=== PATIENT | female | born 2005 | race Caucasian/White ===

== ENCOUNTER 2024-11-30 19:50 | Emergency (ER) | payer SELFPAY ==
[~2024-11-30] VITALS: Ht 162.6 cm; Wt 50.0 kg
[2024-11-30 20:20] VITALS: BP 109/72; PULSE 115; RESP 20; O2SAT 96
--- NOTE | 2024-11-30 20:55 | Physician Documentation ---
History of Present Illness ~ Chief Complaint: Cold, cough & congestion Stated Complaint: SORE THROAT Time Seen by MD: 20:40 HPI 18-year-old female presents to the ED with a complaint of cold cough congestion for the last week. She states that she had a fever of 103 today took acetaminophen presents to the ED now with subclinical fever and a cough. denies any shortness of breath denies any history of COPD asthma or diabetes Day of Onset: Nov 30, 2024 Medication Reconciliation Allergies: Coded Allergies: No Known Allergies (Unverified , 11/30/24) Review of Systems All Other Systems at this time: Reviewed and Negative ROS As stated above in the HPI, otherwise all systems are reviewed and negative. Physical Exam Vital Signs: Temperature: 99.3, Source: Temporal, Heart Rate: 115, Respiratory Rate: 20, BP: 109/72, Pulse Oximetry: 96, Weight: 50.000 Oxygen Flow Rate: 0 Physical Exam General: Alert, no apparent distress. Respiratory: Lungs clear, no respiratory distress. Chest: No accessory muscle use. Cardiovascular: Regular rate and rhythm, no murmurs. Neurologic: Oriented x4. Psychiatric: Normal mood and affect. Skin: Normal color, warm and dry. No edema, no ecchymosis. Progress Results/Orders Results/Orders Vital Signs 11/30/24 20:20 Temp 99.3 Pulse 115 Resp 20 B/P (MAP) 109/72 Pulse Ox 96 O2 Flow Rate 0 Medical Decision Making Findings This patient presents with a all the clinical and to take indications for viral bronchitis. I explained to the patient that antibiotics are not appropriate at this time. I did tell her to return to the ED if her symptoms persist pass the 10 day tahir for further evaluation. She does not present acutely ill and was given the appropriate home care instruction Differential Dx:Considerations: Include: Allergic rhinitis, Influenza, Otitis media, Peritonsillar abscess, Pharyngitis-Diphtheria, Pharyngitis-Streptoccal, Pharyngitis-Viral, Pneumonia, Pnuemonitis, Sinusitis, URI, Other Departure Disposition: 01 HOME / SELF CARE / HOMELESS Impression: Primary Impression: Acute bronchitis Condition: Stable Discharge Instructions: Upper Respiratory Infection, Adult Additional Instructions: Take Tylenol alternating with ibuprofen to maintain your fever make sure you rest and increase fluid intake Referrals: NO PRIMARY CARE PROVIDER (PCP) Education Educated: Patient Educated regarding: diagnosis Signature Scribe Signature: f Attestation: Scribed for Tk Glez Np by Tk Montelongo NP . 11/30/24 20:54 TK GLEZ NP Nov 30, 2024 20:55
[2024-11-30 21:01] VITALS: TEMP 99.3
== END 2024-11-30 21:03 | disposition home or self-care (01) ==
LOC: ER 19:51
DX: J20.9 Acute bronchitis, unspecified (principal)
CPT/HCPCS: 99282